=== PATIENT | female | born 1950 | race Caucasian/White ===

== ENCOUNTER 2021-04-06 11:26 | Emergency (ER) | payer MEDICARE, OTHER, SELFPAY ==
[2021-04-06 11:28] VITALS: BP 181/83; PULSE 77; RESP 16; TEMP 35.4; O2SAT 100; BMI 27.6
--- NOTE | 2021-04-06 11:56 | EKG12_ITS ---
Test Reason : PALPS Blood Pressure : / mmHG Vent. Rate : 078 BPM Atrial Rate : 078 BPM P-R Int : 176 ms QRS Dur : 088 ms QT Int : 404 ms P-R-T Axes : 037 042 050 degrees QTc Int : 460 ms Normal sinus rhythm Normal ECG Confirmed by ROMAN GOMEZ, SANDEEP ([id number]), publications editor CRISTHIAN GEORGE ([id number]) on 04/07/2021 9:34:25 AM Referred By: SHELDON/CHRISTIANE Confirmed By:SANDEEP OWENS MD
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
[2021-04-06] MEDS: 0.9% Normal Saline 1,000 ML 150 ML IV (12:05)
[2021-04-06 12:11] LABS: Absolute Lymphocyte Count 1.38 X10^3/uL (0.83-4.51); Basophil# 0.03 X10^3/uL; Basophil% 0.3 % (0-1); Eosinophils% 1.1 % (0-5); Hematocrit 45.4 % (37-47); Hemoglobin 14.7 g/dL (12.0-15.0); Lymphocyte # 1.38 X10^3/ul (0.83-4.51); Lymphocyte % 14.9 % (19-41); Mean Corp Hgb Conc 32.4 g/dL (32-36); Mean Corpuscular Volume 86.5 fL (81-99); Monocyte# 0.67 X10^3/uL; Monocyte% 7.2 % (0-10); NRBC Flagged by Analyzer 0 % (0-5); Neutrophil # 7.03 X10^3/uL (2.7-7.7); Platelet Count 266 K/mm3 (150-450); RBC Distribution Width CV 12.9 % (11.6-14.6); RBC Distribution Width SD 40.1 fl (35.1-43.9); Red Blood Count 5.25 M/mm3 (4.2-5.4); White Blood Count 9.3 K/mm3 (4.4-11.0)
[2021-04-06 12:31] LABS: Anion Gap 8 (5-15); BUN 13 mg/dL (7-18); BUN/Creat Ratio 19.1 RATIO (10-20); Calcium,Total 9.3 mg/dL (8.5-10.1); Chloride 104 mmol/L (98-107); Creatinine, Serum 0.68 mg/dL (0.55-1.02); EST Glomerular Filtration Rate 91 mL/min (>60); Est Glom Filt Rate - Afr Amer 110 mL/min (>60); Estimated Creatinine Clearance 40.81 ml/min; Glucose 97 mg/dL (74-106); Potassium 3.6 mmol/L (3.5-5.1); Sodium Level 138 mmol/L (136-145); Thyroid Stim Hormone (TSH) 2.93 uIU/mL (0.358-3.74); Troponin-I HS 4 pg/mL (3.0-54.0)
[2021-04-06 12:33] LABS: Mucous, Urine 0 SEEN /hpf (<or=2+); Red Blood Cells-Urine 0 SEEN /hpf (0-5)
[2021-04-06 12:34] LABS: Color, Urine Straw (Yellow); Glucose, Dipstick Normal (Normal); Ketone-Dipstick 15 mg/dl (Negative); Leukocyte Esterase-Dipstick 100 /ul (Negative); Nitrite-Dipstick Negative (Negative); Occult Blood-Urine Negative /ul (Negative); Protein-Dipstick Negative (Negative); Urine Bilirubin Dipstick Negative (Negative); Urine Clarity Clear (Clear); Urine Urobilinogen Normal (Normal)
[2021-04-06 12:44] LABS: Bacteria RARE /hpf (None Seen); Squamous Epithelial Cells - UA 0-5 SEEN /hpf (5-10); White Blood Cells 0-5 SEEN /hpf (0-5)
[2021-04-06 13:20] VITALS: BP 153/74; PULSE 76; RESP 16; O2SAT 99
== END 2021-04-06 13:46 | disposition home or self-care (01) ==
PROVIDERS: Emergency Provider Emergency Medicine; PCP Internal Medicine; Visit Provider Emergency Medicine
DX: R00.2 Palpitations (principal)
CPT/HCPCS: 80048; 81001; 84443; 84484; 85025; 93005; 93225; 93226; 96360; 96361; 99284; J7030; A4216

== ENCOUNTER 2021-04-06 13:16 | Outpatient (CLI) | payer MEDICARE, OTHER, SELFPAY | END 2021-04-06 23:59 | disposition short-term general hospital (02) | PROVIDERS: PCP Internal Medicine; Visit Provider Internal Medicine Interventional Cardiology | DX: Z00.00 Encounter for general adult medical examination without abnormal findings (principal) | CPT/HCPCS: 93225; 93226 ==

== ENCOUNTER 2021-04-10 08:46 | Day surgery (SDC) | payer MEDICARE, OTHER, SELFPAY ==
--- NOTE | 2021-04-10 08:14 | PCM.OPRPT ---
Problems Associated Problem List Diagnoses (1) Polyp of vagina: Report of Operation Date of Procedure: 04/10/21 Pre-Operative Diagnosis: Vaginal polyp, urinary urge incontinence Post-Operative Diagnosis: Same Surgery/Procedure Performed:: Excision of vaginal polyp and foreign body consistent with suture, cystourethroscopy Type of Anesthesia: General Specimen's removed: vaginal polyp Description of Procedure: The patient is a 71-year-old female who has been having blood every time she wipes. On examination in the office there is a vaginal polyp in the anterior midline approximately 1 cm pendulous and fashion. She presents for further evaluation with cystoscopy for this and her incontinence as well as excision of this polyp. Informed consent was obtained. The patient was taken the operating room and placed on the operating room table. Anesthesia monitored the head, neck, airway, IV access and vital signs throughout the case. Once anesthesia was appropriately ministered the patient was placed into dorsal lithotomy position was prepped and draped in usual sterile fashion. A cystourethroscopy was performed with the cystoscope entering through the urethra under direct visualization. The bladder mucosa in its entirety was visualized. There were no masses, areas of ulceration, erythema or foreign body identified. Her ureteral orifices were located in the correct anatomic position. There was a varicosity just beneath the bladder mucosa in the midline of the trigone and posterior bladder wall. At this time the patient's bladder was emptied. The anterior vaginal wall was isolated and the submucosa was injected with 1% lidocaine with epinephrine for hydrostatic dissection and hemostatic control. The polyp was excised in its entirety using a 15 blade knife. The mucosa at the base of the polyp was also removed and sent separately. A 2-0 Vicryl suture was used for hemostatic control. At this time another polyp was identified at the apex and on further evaluation there were 2 separate pieces of suture piercing the vault. The sutures were trimmed and the polyp was removed and sent with the specimen. A 2-0 Vicryl suture was used for hemostatic control. On examination, there is no opening into the abdomen or peritoneum. Support structures were intact. At this time the vagina was irrigated. Premarin cream was inserted. The patient was awakened and taken to the recovery room in good condition. There were no complications during this procedure. Grafts/Implants Used: none Complications none Admit VTE Documentation VTE Present on Admission: Yes VTE Mechan Device Prophylaxis: SCD's VTE Pharm Prophylaxis ordered?: No Reason prophylaxis not ordered:: Treatment Not Indicated
--- NOTE | 2021-04-10 09:15 | PCM.DC ---
Discharge Instructions Diet Discharge Diet: No restrictions Activity Discharge Activity: May Drive (When not taking narcotics) May resume sexual activity in: 4 weeks Dressing / Incision Call your doctor if your incision/area has: Continuous Slow Oozing, Sudden Increased Bleeding, Increased Pain/ Swelling, Increased Redness, Foul Smelling Discharge, Swelling at the incision site and - (Vaginal spotting will be normal, call if using more than 1 pad an hour, or passing large clots) Call your doctor if you observe: Fever of 101 or Higher, Inability to urinate, Inability to have a bowel movement and Uncontrolled pain Additional Dressing/Incision Instructions:: No tub bathing, no hot tubs, no swimming, nothing per vagina Follow Up Care Please Follow Up With: Whitney Frazier MD When: Please call for an appointment to be seen in 1 week Test Results: Test results from this visit will be discussed in further detail at your follow-up appointment, if applicable. Discharge Plan Admission Attending Provider: Whitney Frazier Primary Care Provider: Albertina Vital Instructions Additional Instructions / Restrictions: estrogen cream 0.5 grams every night for 2 weeks Discharge Orders/Prescriptions Prescriptions: No Action biotin 10,000 mcg Capsule 10,000 mcg PO DAILY RF: 0 vitamin E 400 unit Capsule 400 unit PO DAILY RF: 0 Dingess 3 Capsule 1,000 mg PO DAILY RF: 0 Zinc Lozenges with C 10-60 mg Lozenge 1 cruzito PO DAILY RF: 0 elderberry fruit-honey 0.7-3 gram/7.5 mL Liquid 1 ml PO DAILY RF: 0 Referrals / Follow Up: Albertina Vital MD [Primary Care Provider] - Disposition Disposition (needs filled in before D/C Order can be placed): Home, Self Care
[2021-04-10 09:22] VITALS: BP 144/78; PULSE 77; RESP 16; TEMP 36.4; O2SAT 100; BMI 27.6
[2021-04-10] MEDS: Lactated Ringers 1,000 ML 15 ML IV (09:30)
[2021-04-10] MEDS: Cefazolin 2 GM in 0.9% Normal Saline 100 ML IV (09:55)
--- NOTE | 2021-04-10 10:10 | POL_PTH ---
PATIENT: ORQUIDEA LIANG LOC: [facility] [place] U#:[id number] AGE/SX: 71/F ROOM: RE04/10/[address]: Dr. Whitney Frazier MD : [id number] BED: DIS: 04/10/2021 SPEC #: [id number] RECD: 04/10/21 11:26 STATUS: MADAI HERNANDEZ #: [id number] NATALIA: 04/10/21 10:[address]: Whitney Frazier DEPT: SURGICAL PATHOLOGY RECD BY: Zena Chan ENTERED: 04/10/21 12:53 SP TYPE: Polyp OTHR DR: Dr. Albertina Vital MD Tissues: A - POLYP B - POLYP C - FOREIGN BODY Procedures: Surgery Specimen Level I Surgery Specimen Level IV HEADER OPERATION: Cystoscopy, pelvic exam PRE-OP DIAGNOSIS: Polyp of vagina, mixed incontinence, abnormal uterine and vaginal bleeding, acute vaginitis, postmenopausal atrophic vaginitis, nocturia TISSUE SUBMITTED: A ? Vaginal polyp, B ? Base of vaginal polyp, C ? Foreign body MICROSCOPIC DIAGNOSIS A. Vaginal polyp, biopsy: Fragments of benign mucosal polyp, ulcerated and inflamed. B. Base of vaginal polyp, biopsy: Fragment of polyp with denuded mucosa, acute and chronic inflammation and granulation. C. Tissue on foreign body: Granulation tissue with associated acute and chronic inflammation, bacterial colonies and focal dystrophic microcalcification. Foreign body suggestive of suture-like material (gross diagnosis only). AM:rosaura 04/11/2021 MICROSCOPIC DESCRIPTION Slides are reviewed. GROSS DESCRIPTION A - Received in fixative is one container labeled with the patient's name and designated vaginal polyp. The specimen consists of multiple irregular fragments of red-diaz soft tissue that in aggregate measure 1.7 x 0.6 x 0.2 cm. The specimen is totally submitted in one cassette. B - Received in fixative is one container labeled with the patient's name and designated base of vaginal polyp. The specimen consists of two irregular fragments of light diaz soft tissue that in aggregate measure 0.3 x 0.2 x 0.1 cm. The specimen is totally submitted in one cassette. C - Received in fixative is one container labeled with the patient's name and designated foreign body. The specimen consists of multiple elongated fragments of suture-like material aggregating to 1.5 x 0.5 x 0.1 cm. Adherent to the foreign body-type material are irregular fragment of red-diaz soft tissue measuring in aggregate 1 x 0.5 x <0.1 cm. The soft tissue is submitted in its entirety in one cassette. / AM:rosaura 04/10/2021 TC:2 CPT: 14514 x3, [id number]
[2021-04-10] MEDS: Lidocaine 1% /Epi 1:100 (50ml) 50 ML VIAL (10:35)
[2021-04-10] MEDS: Estrogens,Conj. 1 Tube 1 DOSE (10:46)
[2021-04-10 10:57] VITALS: BP 136/74; BP 144/78; PULSE 95; RESP 16; TEMP 36.1; O2SAT 97
[2021-04-10 11:00] VITALS: BP 130/71; BP 144/78; PULSE 90; RESP 16; O2SAT 98
[2021-04-10 11:15] VITALS: BP 135/75; BP 144/78; PULSE 78; RESP 16; O2SAT 99
[2021-04-10 11:24] VITALS: BP 143/77; BP 144/78; PULSE 73; RESP 16; TEMP 36.1; O2SAT 99
[2021-04-10 12:54] VITALS: BP 128/70; BP 144/78; PULSE 76; RESP 16; TEMP 36.8; O2SAT 99
== END 2021-04-10 23:59 | disposition home or self-care (01) ==
LOC: SDC 08:48 → AC 08:49
PROVIDERS: PCP Internal Medicine; Referring Provider Urology; Visit Provider Urology
PROC: 0TJB8ZZ Inspection of Bladder, Via Natural or Artificial Opening Endoscopic (ICD-10-PCS; CPT 57410; principal; 2021-04-10 10:00)
PROC: (CPT 57135; 2021-04-10 10:00)
DX: N84.2 Polyp of vagina (principal); N39.46 Mixed incontinence; N93.9 Abnormal uterine and vaginal bleeding, unspecified; N76.0 Acute vaginitis; N95.2 Postmenopausal atrophic vaginitis; R35.1 Nocturia
CPT/HCPCS: 57135; 52351; 00940; 87426; 88300; 88305; C9803; J7120; J2405